=== PATIENT | male | born 1980 | race Caucasian/White ===

== ENCOUNTER 2022-03-04 07:12 | Day surgery (SDC) | payer BC ==
[2022-03-03 08:44] VITALS: BMI 32.5
[2022-03-04] MEDS ORDERED: PROPOFOL 40 ML ONE (09:52)
[2022-03-04] MEDS ORDERED: Fentanyl 100 MCG/2 ML VIAL ONE (09:53)
[2022-03-04] MEDS ORDERED: Lidocaine 1% PF 5 ML VIAL ONE (09:53)
[2022-03-04] MEDS ORDERED: Glycopyrrolate 0.2 MG/ML 5 ML SYRINGE ONE (10:07)
[2022-03-04] MEDS ORDERED: PROPOFOL 20 ML ONE (11:20)
== END 2022-03-04 12:15 | disposition home or self-care (01) ==
LOC: CSHSDC 07:12
PROVIDERS: ATTEND Internal Medicine Gastroenterology
DX: K51.40 Inflammatory polyps of colon without complications (principal); K57.30 Diverticulosis of large intestine without perforation or abscess without bleeding; K21.9 Gastro-esophageal reflux disease without esophagitis; K64.9 Unspecified hemorrhoids; R13.10 Dysphagia, unspecified
CPT/HCPCS: 88305; J2704; J3010